=== PATIENT | male | born 1950 | race Hispanic/Latino ===

== ENCOUNTER 2019-02-24 06:46 | Day surgery (SDC) | payer BC, MEDICARE ==
[2019-02-18 15:17] VITALS: BP 140/78
[2019-02-18 15:17] LABS: BASOPHILS % (AUTO) 0.2 % (0.0-5.0); EOSINOPHILS % (AUTO) 3.6 % (0.0-8.0); LYMPHOCYTES % (AUTO) 22.4 % (21.0-51.0); MEAN CORPUSCULAR HEMOGLOBIN 28.8 pg (27.0-33.0); MEAN CORPUSCULAR HGB CONC 33.9 g/dL (32.0-36.0); MONOCYTES % (AUTO) 7.3 % (3.0-13.0); NEUTROPHILS % (AUTO) 66.5 % (40.0-77.0); NUCLEATED RED BLOOD CELLS 0.1 % (0.0-0.19); PLATELET COUNT (AUTO) 274 K/uL (130-400); RED BLOOD CELL COUNT(AUTO) 5.41 MIL/uL (4.50-6.20); RED CELL DISTRIBUTION WIDTH 14.9 % (11.0-15.5); WHITE BLOOD COUNT (AUTO) 7.9 K/uL (4.8-10.8)
[2019-02-18 15:19] LABS: APPEARANCE,URINE Clear (CLEAR); BILIRUBIN,URINE Negative (NEGATIVE); COLOR,URINE Yellow (YELLOW); GLUCOSE, URINE (UA) >=1000 mg/dL (NEGATIVE); KETONES,URINE Trace mg/dL (NEGATIVE); LEUKOCYTE ESTERASE ,URINE Negative (NEGATIVE); NITRATE,URINE Negative (NEGATIVE); OCCULT BLOOD,URINE Small (NEGATIVE); PROTEIN,URINE Trace mg/dL (NEGATIVE)
[2019-02-18 15:28] LABS: BACTERIA,URINE Few /HPF (None Seen); WBC,URINE 0-1 /HPF (0-1)
[2019-02-18 15:29] LABS: MUCUS,URINE Few LPF (None Seen); SQUAMOUS EPITHELIAL CELL,UR Rare /HPF (0-2)
[2019-02-18 15:29] LABS: INR 0.94 (0.85-1.15); PARTIAL THROMBOPLASTIN TIME 27.7 SEC (26.3-35.5); PROTHROMBIN TIME 9.9 SEC (9.6-11.6)
[2019-02-18 15:40] LABS: POTASSIUM 4.1 mmol/L (3.5-5.1)
--- NOTE | 2019-02-22 14:56 | NUR ---
reported EKG TO DOCTOR DIAZ, NO NEW ORDERS OKAY TO PROCEED WITH PROCEDURE
[2019-02-24] VITALS (18 sets, daily range): BP systolic 142–207; BP diastolic 71–102
[~2019-02-24] VITALS: Ht 175.3 cm; Wt 93.4 kg
[2019-02-24] MEDS: CEFTRIAXONE SODIUM 1 GM IVP SCH ×2 (06:00→17:45)
[~2019-02-24 06:46] MED LIST: GENTAMICIN SULFATE IV SCH; SODIUM CHLORIDE 0.9% IV SCH
[2019-02-24] MEDS ORDERED: SODIUM CHLORIDE 0.9% 1000ML 1,000 ML IV ONE (07:14)
[2019-02-24] MEDS ORDERED: ATOR40TA69 PO (07:43)
[2019-02-24] MEDS ORDERED: GLIM4TAB3 PO (07:44)
[2019-02-24] MEDS ORDERED: GENTAMICIN SULFATE 400 MG in SODIUM CHLORIDE 0.9% 100 ML IV SCH (07:45)
[2019-02-24] MEDS ORDERED: METF-444 PO (07:45)
[2019-02-24] MEDS ORDERED: FENTANYL CITRATE PF 50 MCG/1 ML 2ML VIAL ONE ×3 (07:52→10:01)
[2019-02-24] MEDS ORDERED: PROPOFOL 10 MG/ML 20ML VIAL IV ONE (07:52)
[2019-02-24] MEDS ORDERED: LIDOCAINE PF 2% 5ML ABBOJECT ONE (07:52)
[2019-02-24] MEDS ORDERED: GLYCOPYRROLATE 1 MG/5 ML SYRINGE ONE (09:31)
[2019-02-24] MEDS ORDERED: HYDRALAZINE HCL 20 MG/ML VIAL ONE (10:52)
--- NOTE | 2019-02-24 11:45 | NUR ---
ASSESSMENT RECEIVED PT FROM PACU STAFF NIHARIKA. PT AAOX3. 20F VARGAS CATH DRAINING AT BEDSIDE WITH 300ML OF CLEAR RED TINGED URINE TO BAG. DENIES ANY DISCOMFORTS AT THIS TIME. CBI DISCONTINUED AT BEDSIDE.
--- NOTE | 2019-02-24 12:30 | NUR ---
TEACHING INSTRUCTED PT ON CHANGING VARGAS TO LEG BAG USING ASEPTIC TECHNIQUE. DID RETURN DEMONSTRATION. NO QUESTIONS AT THIS TIME. PRESCRIPTION GIVEN TO .
== END 2019-02-24 13:00 | disposition home or self-care (01) ==
LOC: DAH 06:46
PROVIDERS: ATTEND Urology
DX: N40.1 Benign prostatic hyperplasia with lower urinary tract symptoms (principal); R35.1 Nocturia; E11.9 Type 2 diabetes mellitus without complications; I10 Essential (primary) hypertension; E78.5 Hyperlipidemia, unspecified; Z79.84 Long term (current) use of oral hypoglycemic drugs; Z79.899 Other long term (current) drug therapy; Z82.49 Family history of ischemic heart disease and other diseases of the circulatory system; Z83.3 Family history of diabetes mellitus
CPT/HCPCS: 36415; 52648; 80048; 81001; 82948 ×2; 85025; 85610; 85730; 87088; 93005; A4354; A4358; A4600; A4930; J0360; J0696; J1580; J2001; J2704; J3010 ×3; J3490; J7030

== ENCOUNTER → 2023-01-13 | Outpatient (CLI) | payer MEDICARE ==
[~2023-01-13] MED LIST changes: +ATOR40TA69 PO; -GENTAMICIN SULFATE IV SCH; +GLIM4TAB36 PO; +METF-444 PO; -SODIUM CHLORIDE 0.9% IV SCH
== END | disposition home or self-care (01) ==
LOC: RAH 13:03
PROVIDERS: ATTEND Family Medicine
DX: N40.0 Benign prostatic hyperplasia without lower urinary tract symptoms (principal); R31.9 Hematuria, unspecified; K57.30 Diverticulosis of large intestine without perforation or abscess without bleeding; I70.0 Atherosclerosis of aorta
CPT/HCPCS: 74176